=== PATIENT | male | born 1995 | race Caucasian/White ===

== ENCOUNTER 2023-12-07 15:21 | Emergency (ER) | payer OTHER, SELFPAY ==
[2023-12-07 15:33] VITALS: BP 131/84; PULSE 89; RESP 16; TEMP 37; O2SAT 98
--- NOTE | 2023-12-07 15:51 | ED.GENADULT ---
HPI - General Adult General Chief complaint: Unspecified Stated complaint: neck swollen Time Seen by Provider: 12/07/23 15:52 Source: patient Mode of arrival: ambulatory Limitations: no limitations History of Present Illness HPI narrative: 28 y/o male presented for c/o right neck lymph node swelling x3 weeks. States it started the same time as right side of his huynh developed an infected hair. States he pulled the hair and has not had complications. Denies sore throat, cough, nasal congestion, n/v/d/f/c. Not taking anything for symptoms. No pcp. Related Data Allergies Allergy/AdvReac Type Severity Reaction Status Date / Time No Known Allergies Allergy Verified 12/07/23 15:32 Review of Systems Review of Systems: CONSTITUTIONAL: Denies body aches, fever, chills, or sweats. EYES: Denies visual changes, redness, or discharge. ENT: Reports neck lymph node swelling Denies rhinorrhea, congestion, sore throat, or otalgia. CARDIOVASCULAR: Denies chest pain, palpitations, or edema. RESPIRATORY: Denies cough or dyspnea. GASTROINTESTINAL: Denies abdominal pain, nausea, vomiting, or diarrhea. GENITOURINARY: Denies dysuria or hematuria. SKIN: Denies rash, itching, or wounds. MUSCULOSKELETAL: Denies back pain, joint pain, or myalgia. NEUROLOGIC: Denies headache, numbness, tingling, or weakness. All systems reviewed & are unremarkable except as noted in HPI and below PMFSH Past Medical History Medical History (Updated 12/07/23 @ 17:09 by Mony Kaba, BRAIN) No pertinent past medical history Comments At time of signature, I have reviewed and agree with nursing past medical, surgical, social and family history unless otherwise noted. Please see nursing chart for further information. There is no relevant family history pertinent to the presenting complaint Exam Narrative: GENERAL: Well-appearing EYES: EOMI. No redness or drainage. Conjunctivae normal. ENT: Mucous membranes pink and moist. No rhinorrhea. TMs normal bilaterally. Throat normal. Uvula midline. NECK: Normal AROM. Supple. Right anterior cervical lymphadenopathy. CHEST: No respiratory distress. Clear to auscultation. HEART: Regular rate and rhythm. EXTREMITIES: Normal range of motion. No edema. SKIN: Right cheek in huynh approx 1cm diameter erythematous slightly raised nontender lesion with scab at center; no active drainage or induration. skin warm, dry, Capillary refill normal. Normal skin turgor. NEURO: No focal deficits. Alert and oriented x3. Gait steady. Course Course Emergency Course: Patient is aware of diagnosis, understands and agrees to treatment plan. Anticipatory guidance given. Patient agrees to follow-up as directed and is aware of reasons to seek care at the emergency department. Portions of this record may have been created with voice recognition software Level of Care: Express Care Visit Vital Signs Vital signs: Vital Signs Temperature 98.6 F 12/07/23 15:33 Pulse Rate 89 12/07/23 15:33 Respiratory Rate 16 12/07/23 15:33 Blood Pressure 131/84 12/07/23 15:33 Pulse Oximetry 98 12/07/23 15:33 Oxygen Delivery Room Air 12/07/23 15:33 Temperature 98.6 F 12/07/23 15:33 Pulse Rate 89 12/07/23 15:33 Respiratory Rate 16 12/07/23 15:33 Blood Pressure 131/84 12/07/23 15:33 Pulse Oximetry 98 12/07/23 15:33 Oxygen Delivery Room Air 12/07/23 15:33 Medical Decision Making MDM Narrative Medical decision making narrative: Discussed physical exam findings c/w right anterior cervical lymphadenopathy most likely 2/2 folliculitis barbae, as pt still has healing lesion after 3 weeks. Rx abx. Advised supportive measures and signs/symptoms to go to the ER. Pt is appropriate for outpt treatment and f/u. Differential Diagnosis Differential Diagnosis: lymphadenitis, lymphoma, abscess, viral exanthema, contact dermatitis, allergic dermatitis, eczema, urticaria, insect bites, impetigo, tinea Vital
== END 2023-12-07 16:06 | disposition home or self-care (01) ==
PROVIDERS: Emergency Provider Nurse Practitioner Family
DX: R59.1 Generalized enlarged lymph nodes (principal); L73.1 Pseudofolliculitis barbae
CPT/HCPCS: 99213; G0463